=== PATIENT | female | born 1950 | race Caucasian/White ===

== ENCOUNTER 2022-07-26 02:16 | Emergency (ER) | payer MEDICARE ==
[~2022-07-26 02:16] MED LIST: APIX5TAB3 PO; DILT30TA5 PO
[2022-07-26] MEDS ORDERED: diltiazem 5mg/ml 5ml inj. IV ONE ×2 (02:40→02:50)
[2022-07-26] MEDS ORDERED: normal saline 1000ml 1,000 ML IV ONE (02:45)
[2022-07-26] MEDS ORDERED: ASPI-1264 PO (02:54)
[2022-07-26 02:57] LABS: BASOPHILS # (AUTO) 0.1 X10'3 (0-0.2); BASOPHILS % (AUTO) 0.9 % (0-1); EOSINOPHILS # (AUTO) 0.1 X10'3 (0-0.9); EOSINOPHILS % (AUTO) 0.6 % (0-6); HEMATOCRIT 42.4 % (35.0-45.0); HEMOGLOBIN 14.4 g/dl (12.0-16.0); LYMPHOCYTES # (AUTO) 2.1 X10'3 (1.1-4.8); LYMPHOCYTES % (AUTO) 16.5 % (21-51); MEAN CORPUSCULAR HEMOGLOBIN 34.8 PG (27.0-31.0); MEAN CORPUSCULAR VOLUME 102.3 FL (78-98); MEAN PLATELET VOLUME 9.4 FL (7.4-10.4); MONOCYTES # (AUTO) 0.9 X10'3 (0-0.9); MONOCYTES % (AUTO) 7.3 % (2-12); NEUTROPHILS # (AUTO) 9.3 X10'3 (1.8-7.7); NEUTROPHILS % (AUTO) 74.7 % (42-75); PLATELET COUNT 270 X10'3 (140-440); RED BLOOD COUNT 4.14 X10'6 (4.20-5.60); RED CELL DISTRIBUTION WIDTH 15.6 % (11.5-14.5); WHITE BLOOD COUNT 12.5 X10'3 (4.5-11.0)
[2022-07-26] MEDS: diltiazem-NS 100mg/100ml 125 ML IV SCH ×2 (03:16→04:04)
[2022-07-26 03:31] LABS: ALANINE AMINOTRANSFERASE 16 U/L (12-78); ALBUMIN 3.4 G/DL (3.4-5.0); ALKALINE PHOSPHATASE 90 IU/L (46-116); ANION GAP 16 (8-16); ASPARTATE AMINO TRANSFERASE 32 U/L (10-37); BILIRUBIN,TOTAL 0.2 MG/DL (0.1-1.0); BLOOD UREA NITROGEN 7 MG/DL (7-18); BUN/CREATININE RATIO 8.2 (6.6-38.0); CALCIUM 8.8 MG/DL (8.5-10.1); CHLORIDE 102 MMOL/L (99-107); CREATININE 0.85 MG/DL (0.40-0.90); GLUCOSE 161 MG/DL (70-104); MAGNESIUM 1.7 MG/DL (1.5-2.4); POTASSIUM 3.3 MMOL/L (3.5-5.1); SODIUM 140 MMOL/L (135-145); TOTAL CARBON DIOXIDE 22.2 MMOL/L (24-32); TOTAL PROTEIN 6.9 G/DL (6.4-8.2); eGFR 66 ML/MIN
[2022-07-26] MEDS ORDERED: potassium Cl 20 mEq SR tablet PO STA (03:43)
--- NOTE | 2022-07-26 04:05 | NUR ---
PER PROVIDER OK TO TITRATE CARDIZEM IN ED, GOAL HR LESS THAN 100 GREATER THAN 60 SYSTOLIC BP GREATER THAN 100, PATIENT TITRATE OVER TIME UP TO 15MG/HROR 15ML/HR TITRATION OCCURRED OVER ~20 TIME FRAME BETWEEN 5MG TO 10 MG AND 10 MG TO 15 MG
[2022-07-26] MEDS ORDERED: metoprolol tartrate 1mg/ml inj IV SCH (04:10)
[2022-07-26] MEDS ORDERED: diltiazem-NS 100mg/100ml 100 ML IV SCH (04:16)
[2022-07-26] MEDS ORDERED: diltiazem-D5W 125mg/125ml 125 ML IV SCH (04:30)
--- NOTE | 2022-07-26 04:45 | NUR ---
PATIENT CONVERTED INTO SINUS RYTHUM CARDIZEM STOPPED, EKG REPEATED AND GAVE TO PROVIDER
[2022-07-26 05:32] VITALS: BP 112/52
== END 2022-07-26 05:43 | disposition home or self-care (01) ==
LOC: ER 02:17
DX: I48.20 Chronic atrial fibrillation, unspecified (principal); I10 Essential (primary) hypertension; F17.200 Nicotine dependence, unspecified, uncomplicated; Z79.899 Other long term (current) drug therapy; Z79.2 Long term (current) use of antibiotics
CPT/HCPCS: 36415; 71045; 80053; 83735; 83880; 84484; 85025; 93005; 96361; 96365; 96366; 96375; 96376; 99285; J3490; J7030

== ENCOUNTER 2022-11-28 02:05 | Emergency (ER) | payer MEDICARE ==
[~2022-11-28] VITALS: Ht 160 cm; Wt 59.1 kg
[~2022-11-28 02:05] MED LIST changes: -APIX5TAB3 PO
[2022-11-28] MEDS ORDERED: normal saline 1000ML IV soln IVB ONE (02:35)
[2022-11-28] MEDS ORDERED: metoprolol tartrate 1mg/ml inj IV ONE (02:35)
[2022-11-28 02:45] LABS: BASOPHILS % (AUTO) 0.3 % (0-1); EOSINOPHILS # (AUTO) 0.1 X10'3 (0-0.9); EOSINOPHILS % (AUTO) 1.5 % (0-6); HEMATOCRIT 43.4 % (35.0-45.0); HEMOGLOBIN 14.8 g/dl (12.0-16.0); LYMPHOCYTES # (AUTO) 2.7 X10'3 (1.1-4.8); LYMPHOCYTES % (AUTO) 30.8 % (21-51); MEAN CORPUSCULAR HEMOGLOBIN 32.9 PG (27.0-31.0); MEAN CORPUSCULAR HGB CONC 34.2 g/dL (33.0-36.5); MEAN CORPUSCULAR VOLUME 96.4 FL (78-98); MEAN PLATELET VOLUME 9.8 FL (7.4-10.4); NEUTROPHILS % (AUTO) 56.4 % (42-75); PLATELET COUNT 259 X10'3 (140-440); RED BLOOD COUNT 4.51 X10'6 (4.20-5.60); RED CELL DISTRIBUTION WIDTH 14.2 % (11.5-14.5); WHITE BLOOD COUNT 8.8 X10'3 (4.5-11.0)
[2022-11-28 03:00] LABS: ALANINE AMINOTRANSFERASE 31 U/L (12-78); ALBUMIN 3.8 G/DL (3.4-5.0); ALBUMIN/GLOBULIN RATIO 1.2 (1.1-1.5); ALKALINE PHOSPHATASE 77 IU/L (46-116); ANION GAP 11 (8-16); ASPARTATE AMINO TRANSFERASE 26 U/L (10-37); BILIRUBIN,TOTAL 0.3 MG/DL (0.1-1.0); BLOOD UREA NITROGEN 13 MG/DL (7-18); CHLORIDE 103 MMOL/L (99-107); CREATININE 0.93 MG/DL (0.40-0.90); GLUCOSE 130 MG/DL (70-104); SODIUM 138 MMOL/L (135-145); TOTAL CARBON DIOXIDE 24.1 MMOL/L (24-32); eGFR 60 ML/MIN
[2022-11-28] MEDS ORDERED: diltiazem 5mg/ml 5ml inj. IV ONE (03:05)
[2022-11-28 03:08] LABS: MAGNESIUM 2.3 MG/DL (1.5-2.4)
[2022-11-28 03:37] VITALS: BP 127/64
[2022-11-28] MEDS ORDERED: diltiazem 30mg tablet PO ONE (03:40)
== END 2022-11-28 04:07 | disposition home or self-care (01) ==
LOC: ER 02:05
DX: I48.20 Chronic atrial fibrillation, unspecified (principal); I10 Essential (primary) hypertension; F17.200 Nicotine dependence, unspecified, uncomplicated; Z88.8 Allergy status to other drugs, medicaments and biological substances
CPT/HCPCS: 36415; 80053; 83735; 83880; 84484; 85025; 93005; 96374; 96375; 99284; J3490; J7030

== ENCOUNTER 2023-01-02 23:37 | Emergency (ER) | payer MEDICARE ==
[~2023-01-02] VITALS: Ht 158.8 cm; Wt 63.6 kg
[2023-01-03 00:11] LABS: BASOPHILS % (AUTO) 0.3 % (0-1); EOSINOPHILS # (AUTO) 0.2 X10'3 (0-0.9); EOSINOPHILS % (AUTO) 1.9 % (0-6); HEMATOCRIT 42.1 % (35.0-45.0); HEMOGLOBIN 14.7 g/dl (12.0-16.0); LYMPHOCYTES # (AUTO) 2.9 X10'3 (1.1-4.8); LYMPHOCYTES % (AUTO) 30.5 % (21-51); MEAN CORPUSCULAR HEMOGLOBIN 33.4 PG (27.0-31.0); MEAN CORPUSCULAR HGB CONC 35.1 g/dL (33.0-36.5); MEAN CORPUSCULAR VOLUME 95.3 FL (78-98); MEAN PLATELET VOLUME 9.2 FL (7.4-10.4); MONOCYTES # (AUTO) 0.8 X10'3 (0-0.9); MONOCYTES % (AUTO) 8.8 % (2-12); NEUTROPHILS # (AUTO) 5.5 X10'3 (1.8-7.7); NEUTROPHILS % (AUTO) 58.5 % (42-75); PLATELET COUNT 266 X10'3 (140-440); RED BLOOD COUNT 4.41 X10'6 (4.20-5.60); RED CELL DISTRIBUTION WIDTH 13.9 % (11.5-14.5); WHITE BLOOD COUNT 9.4 X10'3 (4.5-11.0)
[2023-01-03 00:19] LABS: ALANINE AMINOTRANSFERASE 31 U/L (12-78); ALBUMIN 3.9 G/DL (3.4-5.0); ALBUMIN/GLOBULIN RATIO 1.1 (1.1-1.5); ALKALINE PHOSPHATASE 82 IU/L (46-116); ANION GAP 11 (8-16); ASPARTATE AMINO TRANSFERASE 25 U/L (10-37); BILIRUBIN,TOTAL 0.3 MG/DL (0.1-1.0); BLOOD UREA NITROGEN 14 MG/DL (7-18); BUN/CREATININE RATIO 14.6 (6.6-38.0); CALCIUM 9.4 MG/DL (8.5-10.1); CHLORIDE 104 MMOL/L (99-107); CREATININE 0.96 MG/DL (0.40-0.90); GLUCOSE 154 MG/DL (70-104); POTASSIUM 4.1 MMOL/L (3.5-5.1); SODIUM 141 MMOL/L (135-145); TOTAL CARBON DIOXIDE 26.2 MMOL/L (24-32); TOTAL PROTEIN 7.4 G/DL (6.4-8.2); eGFR 57 ML/MIN
[2023-01-03 00:27] LABS: MAGNESIUM 2.1 MG/DL (1.5-2.4)
[2023-01-03] MEDS ORDERED: diltiazem 5mg/ml 5ml inj. IV ONE (00:30)
[2023-01-03] MEDS ORDERED: metoprolol tartrate 1mg/ml inj IV STA (00:53)
[2023-01-03] MEDS ORDERED: metoprolol tartrate 1mg/ml inj IV ONE (01:25)
[2023-01-03 01:45] VITALS: BP 108/58
--- NOTE | 2023-01-03 01:47 | NUR ---
Pt. ambulated to bathroom, upon return felt hot, dizzy and light headed. VS WNL. Informed Dr. Gonzalez, no new orders, plan to keep in ED until feeling better.
== END 2023-01-03 02:19 | disposition home or self-care (01) ==
LOC: ER 23:37
DX: R00.2 Palpitations (principal); R06.02 Shortness of breath; I11.9 Hypertensive heart disease without heart failure; Z79.899 Other long term (current) drug therapy
CPT/HCPCS: 36415; 71045; 80053; 83735; 83880; 84484; 85025; 93005; 96374; 96375; 99285; J3490

== ENCOUNTER 2023-02-15 19:20 | Emergency (ER) | payer MEDICARE ==
[~2023-02-15] VITALS: Ht 157.5 cm; Wt 65.6 kg
[2023-02-15 19:53] LABS: BASOPHILS # (AUTO) 0.1 X10'3 (0-0.2); BASOPHILS % (AUTO) 1.2 % (0-1); EOSINOPHILS # (AUTO) 0.2 X10'3 (0-0.9); EOSINOPHILS % (AUTO) 1.7 % (0-6); HEMATOCRIT 46.8 % (35.0-45.0); LYMPHOCYTES # (AUTO) 2.9 X10'3 (1.1-4.8); LYMPHOCYTES % (AUTO) 33.5 % (21-51); MEAN CORPUSCULAR HEMOGLOBIN 32.1 PG (27.0-31.0); MEAN CORPUSCULAR HGB CONC 34.1 g/dL (33.0-36.5); MEAN CORPUSCULAR VOLUME 94.2 FL (78-98); MEAN PLATELET VOLUME 9.7 FL (7.4-10.4); MONOCYTES # (AUTO) 0.6 X10'3 (0-0.9); MONOCYTES % (AUTO) 7.3 % (2-12); NEUTROPHILS # (AUTO) 4.9 X10'3 (1.8-7.7); NEUTROPHILS % (AUTO) 56.3 % (42-75); PLATELET COUNT 181 X10'3 (140-440); RED BLOOD COUNT 4.97 X10'6 (4.20-5.60); RED CELL DISTRIBUTION WIDTH 13.9 % (11.5-14.5); WHITE BLOOD COUNT 8.7 X10'3 (4.5-11.0)
[2023-02-15 20:21] LABS: ALANINE AMINOTRANSFERASE 22 U/L (12-78); ALBUMIN 3.8 G/DL (3.4-5.0); ALBUMIN/GLOBULIN RATIO 1.1 (1.1-1.5); ALKALINE PHOSPHATASE 83 IU/L (46-116); ANION GAP 8 (8-16); ASPARTATE AMINO TRANSFERASE 18 U/L (10-37); BILIRUBIN,TOTAL 0.2 MG/DL (0.1-1.0); BLOOD UREA NITROGEN 13 MG/DL (7-18); BUN/CREATININE RATIO 15.3 (10.0-20.0); CALCIUM 9.1 MG/DL (8.5-10.1); CHLORIDE 102 MMOL/L (99-107); CREATININE 0.85 MG/DL (0.40-0.90); GLUCOSE 119 MG/DL (70-104); POTASSIUM 3.8 MMOL/L (3.5-5.1); SODIUM 139 MMOL/L (135-145); TOTAL PROTEIN 7.4 G/DL (6.4-8.2); eGFR 66 ML/MIN
[2023-02-15] MEDS ORDERED: amiodarone 200mg tablet PO ONE (21:00)
[2023-02-15] MEDS ORDERED: rivaroxaban 20mg tablet PO ONE (21:50)
[2023-02-15] MEDS ORDERED: metoprolol tartrate 1mg/ml inj IV ONE (22:20)
--- NOTE | 2023-02-15 22:28 | NUR ---
ivp given by charge nurse
[2023-02-15 22:44] VITALS: BP 123/72
--- NOTE | 2023-02-15 22:59 | NUR ---
iv dc'd pt being discharged dressing applied
[2023-02-16] MEDS ORDERED: RIVA20TA PO (15:45)
== END 2023-02-15 23:00 | disposition home or self-care (01) ==
LOC: ER 19:20
DX: I48.91 Unspecified atrial fibrillation (principal); I11.9 Hypertensive heart disease without heart failure; Z79.899 Other long term (current) drug therapy
CPT/HCPCS: 36415; 80053; 83735; 83880; 84484; 85025; 93005; 96374; 99284; J3490